=== PATIENT | male | born 1965 | race Caucasian/White ===

== ENCOUNTER 2016-06-15 03:39 | Observation (INO) | payer SELFPAY ==
[~2016-06-15] VITALS: Ht 182.9 cm; Wt 102.0 kg
[2016-06-15] VITALS (15 sets, daily range): BP systolic 106–179; BP diastolic 55–91; PULSE 78–97; RESP 18–20; TEMP 97.6–98.1; O2SAT 92–99
[~2016-06-15 03:39] MED LIST: ATOR80TA PO; CARI1TAB34 PO; DILA4TAB10 PO; DUONI NEB; ENOX100P SQ; HYDR12.56 PO; IPRAAER INH; LISI40TA PO; LOPR50TA12 PO; NITR.4 SL; ORPH100T PO; PLAV75TA PO; POTA-243 PO; REST30CA PO
[2016-06-15] MEDS ORDERED: SODIUM CHLORID 0.9% 500 ML INJ 500 ML IV ONE (04:00)
[2016-06-15] MEDS ORDERED: MORPHINE SULFATE 4 MG/ML INJ IV PUSH ONE (04:00)
[2016-06-15] MEDS ORDERED: SODIUM CHLORIDE 0.9% FLUSH 5 ML FLUSH IVF PRN (04:00)
[2016-06-15] MEDS ORDERED: NITROGLYCERIN 2% OINT 1 GM PACKET TOP ONE (04:00)
[2016-06-15] MEDS ORDERED: ONDANSETRON HCL 4 MG/2 ML VIAL IV PUSH ONE (04:00)
[2016-06-15] MEDS ORDERED: RESP: ALBUTEROL 2.5 MG/IPRATROPIUM 0.5 MG NEB (SCH) INH ONE (04:30)
--- NOTE | 2016-06-15 04:31 | PD ---
HPI Chief Complaint: Chest Pain Time Seen by Provider: 03:55 Travel History International Travel<30 days: No Contact w/Intl Traveler<30days: No Traveled to known affect area: No History of Present Illness HPI 50-year-old male with history of multiple medical issues, prostate cancer and colon cancer with metastases to multiple areas including the brain, previous CVA , ME, PE, on Plavix due to aspirin allergies, on Lovenox due to PE, currently follows up with Dr. Ryan for cardiology, presents to the ER today because he started having a 8 out of 10 substernal chest pains with radiation down his left arm and nausea. He states it feels like his heart attack. He had taken 4 of his nitroglycerin today and it reduced his pain from a 10 out of 10 to a 8 out of 10 currently. He states the pain worsens with exertion. Modifying Factors: None Associated Signs & Symptoms: Chest pain Risk Factors: Previous ME history PFSH Past Medical History Hx Anticoagulant Therapy: Yes ADHD: Yes Arthritis: No Asthma: Yes Autoimmune Disease: No Blood Disorders: No Anxiety: No Depression: No Heart Rhythm Problems: Yes (A-FIB) Cancer: Yes (PROSTATE-COLON METASTASIZED TO BRAIN/LUNGS/L INTESTINE ON CHEMO) Cardiac Catheterization: Yes High Cholesterol: Yes Chemotherapy: Yes (12/30/15--PROSTATE CA) Chest Pain: Yes Congestive Heart Failure: No COPD: No Cerebrovascular Accident: Yes (2006) Diabetes: No Diminished Hearing: No Deep Vein Thrombosis: Yes (3 PE) Endocrine: No Gastrointestinal Disorders: No GERD: Yes Glaucoma: No Genitourinary: No Headaches: Yes Hepatitis: No Hiatal Hernia: Yes Hypertension: Yes Immune Disorder: No Implanted Vascular Access Dvce: No Kidney Stones: Yes Musculoskeletal: Yes (carpal tunnel in both hands) Neurologic: Yes (SCIATIC NERVE REPAIR) Psychiatric: No Reproductive: No Respiratory: Yes (ASTHMA) Immunizations Current: No Myocardial Infarction: Yes (x3) Radiation Therapy: Yes Renal Failure: No Seizures: Yes Sleep Apnea: Yes (cpap) Thyroid Disease: No Ulcer: No PNEUMOCCOCAL Vaccine (Year): 2010 ?: Not Past Surgical History Abdominal Surgery: Yes (HERNIA REPAIR) AICD: No Appendectomy: Yes Arteriovenous Shunt: No Cardiac Surgery: Yes (ANGIOPLASTY X 3) Coronary Artery Bypass Graft: No Coronary Stent: Yes (X1) Ear Surgery: No Endocrine Surgery: No Eye Surgery: No Genitourinary Surgery: No Gynecologic Surgery: No Hysterectomy: Yes Insulin Pump: No Joint Replacement: No Neurologic Surgery: Yes (sciatic nerve) Oral Surgery: Yes (ABSCESS REMOVED FROM TOP OF SOFT PALATE) Pacemaker: No Thoracic Surgery: No Other Surgery: Yes Family History Family Myocardial Infarction: Yes Social History Alcohol Use: No Tobacco Use: Yes (/2 PPD ) Substance Use: No Allergies-Medications (Allergen,Severity, Reaction): Coded Allergies: Aspirin (Verified Allergy, Severe, Anaphylaxis, 01/01/16) Iodine (Verified Allergy, Severe, anaphalactic, 01/01/16) Peanut (Verified Allergy, Severe, Anaphylaxis, 01/01/16) Penicillin (Verified Allergy, Severe, Nausea/Vomiting, 01/01/16) [place] Nut (Verified Allergy, Mild, 01/01/16) Nut Tree (Verified Allergy, Mild, RASH, 01/01/16) [place] Nut (Verified Allergy, Mild, RASH, 01/01/16) Contrast Media (Verified Adverse Reaction, Severe, 01/01/16) NAUSEA/VOMITING, "COUGH UP BLOOD" Reported Meds & Prescriptions Reported Meds & Active Scripts Active Reported Nitroglycerin SL (Nitroglycerin) 0.4 Mg Subl 0.4 Mg SL DIRECTED PRN ONE TABLET UNDER THE TONGUE NEEDED FOR CHEST PAIN, MAY REPEAT EVERY FIVE MINUTES FOR A TOTAL OF 3 DOSES OR CALL 911 IF NO RELIEF Temazepam 30 Mg Cap 30 Mg PO HS PRN Klor-Con 25 (Potassium Chloride) 25 Meq Pow 10 Meq PO DAILY Lopressor (Metoprolol Tartrate) 50 Mg Tab 50 Mg PO BID Lovenox Inj (Enoxaparin Sodium) 100 Mg/Ml Syr 100 Mg SQ BID Soma (Carisoprodol) 350 Mg Tab 350 Mg PO TID PRN Combivent Respimat Inh (Ipratropium-Albuterol Inh) 20-100 Alf/Act Aero 1 Puff INH Q6HR PRN Albuterol Neb (Albuterol Sulfate) 2.5 Mg/0.5 Ml Neb 2.5 Mg NEB QID NEB Note: The Albuterol Sulfate Inhalation Solution is concentrated and must be diluted. Read complete instructions carefully before using. Lipitor (Atorvastatin Calcium) 40 Mg Tab 40 Mg PO HS Hydrochlorothiazide 25 Mg Tab 25 Mg PO DAILY Lisinopril 20 Mg Tab 20 Mg PO DAILY Plavix (Clopidogrel Bisulfate) 75 Mg Tab 75 Mg PO DAILY Review of Systems Except as stated in HPI: all other systems reviewed are Neg Physical Exam Narrative GENERAL: Well-nourished, well-developed middle age white male patient in mild distress. SKIN: Warm and dry. HEAD: Normocephalic. EYES: No scleral icterus. No injection or drainage. NECK: Supple, trachea midline. CARDIOVASCULAR: Regular rate and rhythm without murmurs, gallops, or rubs. RESPIRATORY: Breath sounds equal bilaterally. No accessory muscle use. GASTROINTESTINAL: Abdomen soft, non-tender, nondistended. MUSCULOSKELETAL: No cyanosis, or edema. BACK: Nontender without obvious deformity. No CVA tenderness. Data Data Last Documented VS Vital Signs Date Time Temp Pulse Resp B/P Pulse Ox O2 Delivery O2 Flow Rate FiO2 06/15/16 05:23 89 18 139/91 99 Room Air 06/15/16 03:46 97.6 Orders Electrocardiogram (06/15/16 03:55) B-Type Natriuretic Peptide (06/15/16 03:55) Ckmb (Isoenzyme) Profile (06/15/16 03:55) Complete Blood Count With Diff (06/15/16 03:55) Comprehensive Metabolic Panel (06/15/16 03:55) D-Dimer (06/15/16 03:55) Magnesium (Mg) (06/15/16 03:55) Prothrombin Time / Inr (Pt) (06/15/16 03:55) Act Partial Throm Time (Ptt) (06/15/16 03:55) Troponin I (06/15/16 03:55) Chest, Single Ap (06/15/16 03:55) Ecg Monitoring (06/15/16 03:55) Bilateral Bp Monitoring (06/15/16 03:55) Iv Access Insert/Monitor (06/15/16 03:55) Oximetry (06/15/16 03:55) Oxygen Administration (06/15/16 03:55) Morphine Inj (Morphine Inj) (06/15/16 04:00) Nitroglycerin 2% Oint (Nitroglycerin 2% (06/15/16 04:00) Sodium Chloride 0.9% Flush (Ns Flush) (06/15/16 04:00) Sodium Chlorid 0.9% 500 Ml Inj (Ns 500 M (06/15/16 04:00) Ondansetron Inj (Zofran Inj) (06/15/16 04:00) Albuterol-Ipratropium Neb (Duoneb Neb) (06/15/16 04:30) CKMB (06/15/16 04:24) CKMB% (06/15/16 04:24) Hydromorphone Pf Inj (Dilaudid Pf Inj) (06/15/16 05:45) Labs Laboratory Tests Test 06/15/16 04:24 White Blood Count 7.1 TH/MM3 Red Blood Count 4.75 MIL/MM3 Hemoglobin 13.1 GM/DL Hematocrit 38.7 % Mean Corpuscular Volume 81.5 FL Mean Corpuscular Hemoglobin 27.6 PG Mean Corpuscular Hemoglobin 33.9 % Concent Red Cell Distribution Width 18.3 % Platelet Count 230 TH/MM3 Mean Platelet Volume 8.0 FL Neutrophils (%) (Auto) 58.4 % Lymphocytes (%) (Auto) 26.5 % Monocytes (%) (Auto) 10.4 % Eosinophils (%) (Auto) 4.2 % Basophils (%) (Auto) 0.5 % Neutrophils # (Auto) 4.2 TH/MM3 Lymphocytes # (Auto) 1.9 TH/MM3 Monocytes # (Auto) 0.7 TH/MM3 Eosinophils # (Auto) 0.3 TH/MM3 Basophils # (Auto) 0.0 TH/MM3 CBC Comment DIFF FINAL Differential Comment Prothrombin Time 10.2 SEC Prothromb Time International 0.9 RATIO Ratio Activated Partial 26.1 SEC Thromboplast Time D-Dimer Quantitative (PE/DVT) 0.52 MG/L FEU Sodium Level 140 MEQ/L Potassium Level 4.2 MEQ/L Chloride Level 105 MEQ/L Carbon Dioxide Level 27.5 MEQ/L Anion Gap 8 MEQ/L Blood Urea Nitrogen 15 MG/DL Creatinine 0.98 MG/DL Estimat Glomerular Filtration 82 ML/MIN Rate Random Glucose 97 MG/DL Calcium Level 8.9 MG/DL Magnesium Level 2.0 MG/DL Total Bilirubin 0.2 MG/DL Aspartate Amino Transf 10 U/L (AST/SGOT) Alanine Aminotransferase 23 U/L (ALT/SGPT) Alkaline Phosphatase 86 U/L Total Creatine Kinase 128 U/L Creatine Kinase MB 1.7 NG/ML Troponin I LESS THAN 0.02 NG/ML B-Type Natriuretic Peptide LESS THAN 2 PG/ML Total Protein 7.1 GM/DL Albumin 3.5 GM/DL MDM Medical Decision Making Medical Screen Exam Complete: Yes Emergency Medical Condition: Yes Medical Record Reviewed: Yes Interpretation(s) EKG shows normal sinus rhythm at a rate of 94 bpm with no signs of acute ST-T changes. Laboratory Tests Test 06/15/16 04:24 Hematocrit 38.7 % (39.0-51.0) Red Cell Distribution Width 18.3 % (11.6-17.2) Monocytes (%) (Auto) 10.4 % (0.0-8.0) Eosinophils (%) (Auto) 4.2 % (0.0-4.0) D-Dimer Quantitative (PE/DVT) 0.52 MG/L FEU (0.00-0.50) Estimat Glomerular Filtration 82 ML/MIN (>89) Rate Aspartate Amino Transf 10 U/L (15-37) (AST/SGOT) Troponin I LESS THAN 0.02 NG/ML (0.02-0.05) Differential Diagnosis Chest painsACS versus PE versus pneumonia versus unstable angina versus dysrhythmias Narrative Course Patient was given aspirin and nitroglycerin in the ER. EKG did not show any signs of acute ST-T changes. Cardiac enzymes are negative. At this point, my plan would be to medically admit the patient for further evaluation and treatment. Cardiology consult. Case is discussed with Dr. Sethi for admission. Procedures EKG Prior to Arrival: Yes Diagnosis Primary Impression: Chest pain Admitting Information Admitting Physician Requests: Admit Jack Cruz MD Jun 15, 2016 04:31 Jack Cruz MD Jun 15, 2016 04:31
[2016-06-15 04:34] LABS: AUTOMATED NEUTROPHIL # 4.2 TH/MM3 (1.8-7.7); BASOPHIL % 0.5 % (0.0-2.0); EOSINOPHIL # 0.3 TH/MM3 (0-0.4); EOSINOPHIL % 4.2 % (0.0-4.0); HEMATOCRIT 38.7 % (39.0-51.0); HEMO FLAGS DIFF FINAL; LYMPH % 26.5 % (9.0-44.0); LYMPHOCYTE # 1.9 TH/MM3 (1.0-4.8); MEAN CELL VOLUME 81.5 FL (80.0-100.0); MEAN CORPUSCULAR HEMOGLOBIN 27.6 PG (27.0-34.0); MEAN CORPUSCULAR HGB CONC 33.9 % (32.0-36.0); MONO % 10.4 % (0.0-8.0); NEUT % 58.4 % (16.0-70.0); PLATELET COUNT 230 TH/MM3 (150-450); RED BLOOD COUNT 4.75 MIL/MM3 (4.50-5.90); RED CELL DISTRIBUTION WIDTH 18.3 % (11.6-17.2); WHITE BLOOD COUNT 7.1 TH/MM3 (4.0-11.0)
[2016-06-15 04:47] LABS: ALT (GPT) 23 U/L (12-78); ANION GAP 8 MEQ/L (5-15); AST (GOT) 10 U/L (15-37); BICARBONATE 27.5 MEQ/L (21.0-32.0); BLOOD UREA NITROGEN 15 MG/DL (7-18); CHLORIDE 105 MEQ/L (98-107); GLOMERULAR FILTRATION RATE 82 ML/MIN (>89); POTASSIUM 4.2 MEQ/L (3.5-5.1); SODIUM (NA) 140 MEQ/L (136-145)
--- NOTE | 2016-06-15 04:49 | RADRPT ---
EXAM DATE/TIME: 06/15/2016 04:07 [facility] COMPARISON: CHEST SINGLE AP, January 03, 2016, 20:53. INDICATIONS : Chest pain. MEDICAL HISTORY : Hypertension. Myocardial infarction. Atrial fibrillation, coronary artery disease and prostate cancer . SURGICAL HISTORY : Appendectomy. Coronary artery stent. Hernia repair. ENCOUNTER: Initial ACUITY: 1 day PAIN SCORE: 4/10 LOCATION: Bilateral chest FINDINGS: A single view of the chest demonstrates the lungs to be symmetrically aerated without evidence of mas s, infiltrate or effusion. The cardiomediastinal contours are unremarkable. Osseous structures are intact with some degenerative spurring of the dorsal spine. CONCLUSION: No acute cardiopulmonary process. Dexter Powell MD on June 15, 2016 at 4:45 Board Certified Radiologist. This report was verified electronically.
[2016-06-15 04:50] LABS: ALKALINE PHOSPHATASE 86 U/L (45-117); CREATINE KINASE 128 U/L (39-308); TOTAL BILIRUBIN ADULT 0.2 MG/DL (0.2-1.0)
[2016-06-15 04:57] LABS: APTT (PATIENT) 26.1 SEC (24.3-30.1); INTERNATIONAL NORMALIZED RATIO 0.9 RATIO; PROTHROMBIN TIME - PATIENT 10.2 SEC (9.8-11.6)
[2016-06-15 05:02] LABS: CKMB 1.7 NG/ML (0.5-3.6)
[2016-06-15] MEDS ORDERED: TEMA30CA PO (05:30)
[2016-06-15] MEDS ORDERED: LISI-515 PO (05:30)
[2016-06-15] MEDS ORDERED: HYDR25TA5 PO (05:30)
[2016-06-15] MEDS ORDERED: KLOR25PO2 PO (05:30)
[2016-06-15] MEDS ORDERED: IPRAAER INH (05:30)
[2016-06-15] MEDS ORDERED: LIPI40TA PO (05:30)
[2016-06-15] MEDS ORDERED: NITR50VP (05:30)
[2016-06-15] MEDS ORDERED: ENOX100P SQ (05:30)
[2016-06-15] MEDS ORDERED: NITR1SUB3 SL (05:30)
[2016-06-15] MEDS ORDERED: ALBU.5I NEB (05:30)
[2016-06-15] MEDS ORDERED: PLAV75TA29 PO (05:30)
[2016-06-15] MEDS ORDERED: METO-309 PO (05:30)
[2016-06-15] MEDS ORDERED: SOMA350T PO (05:30)
[2016-06-15] MEDS ORDERED: HYDROmorphone HCL PF 2 MG/ML VIAL IV PUSH ONE (05:45)
[2016-06-15] MEDS ORDERED: TIOTROPIUM BROMIDE 18 MCG INH INH PRN (08:00)
[2016-06-15] MEDS ORDERED: ACETAMINOPHEN 500 MG CPLT PO PRN (08:00)
[2016-06-15] MEDS: RESP: ALBUTEROL CONC 2.5 MG/0.5 ML NEB NEB SCH ×4 (08:00→20:00)
[2016-06-15] MEDS ORDERED: SODIUM CHLORIDE 0.9% FLUSH 5 ML FLUSH IV PRN (08:00)
[2016-06-15] MEDS ORDERED: NITROGLYCERIN 0.4 MG SL 25 TABS/BTL SL PRN (08:00)
[2016-06-15 08:12] LABS: AMPHETAMINE, URINE NEG (NEG); BARBITURATES, URINE NEG (NEG); COCAINE, URINE NEG (NEG)
[2016-06-15] MEDS: SODIUM CHLORIDE 0.9% FLUSH 5 ML FLUSH IV SCH ×2 (09:00→21:00)
[2016-06-15] MEDS: ENOXAPARIN SODIUM 100 MG/ML SYRINGE SQ SCH ×2 (09:00→21:00)
[2016-06-15] MEDS: ALBUTEROL SULFATE 90 MCG/ACT HFA 8 GM INHALER INH SCH ×4 (09:00→21:00)
--- NOTE | 2016-06-15 10:10 | EKG ---
Date Performed: 06/15/2016 Time Performed: 03:48:57 PTAGE: 50 years EKG: Sinus rhythm NORMAL ECG NO PREVIOUS TRACING DOCTOR: Be Boyer Interpretating Date/Time 06/15/2016 10:07:35
[2016-06-15] MEDS: HYDROCHLOROTHIAZIDE 25 MG TAB PO SCH (10:25)
[2016-06-15] MEDS: PANTOPRAZOLE SOD 40 MG DELAYED RELEASE TAB PO SCH (10:25)
[2016-06-15] MEDS: METOPROLOL TARTRATE 50 MG TAB PO SCH ×2 (10:26→21:00)
[2016-06-15] MEDS: LISINOPRIL 20 MG TAB PO SCH (10:26)
[2016-06-15] MEDS: CLOPIDOGREL 75 MG TAB PO SCH (10:26)
--- NOTE | 2016-06-15 12:03 | MB ---
cc: GONZALO WOLFE DATE OF CONSULTATION: 06/15/2016 DATE OF : 1965 REASON FOR CONSULTATION Chest pain. HISTORY OF PRESENT ILLNESS 50-year-old male with a past medical history significant for prostate and colon cancer stage IV with liver metastasis, brain metastasis, kidney and pancreas on chemo and radiation, pulmonary emboli, tobacco abuse, coronary artery disease with a stent in 2008 that presented to the hospital with complaints of acute onset of chest pressure. He reports that the chest pain and pressure woke him up from sleep and was found to be relieved by nitroglycerin. He reports the chest pain radiated to the left arm and was associated with some diaphoresis. In the emergency department the EKG showed normal sinus rhythm with a rate of 94 , no acute ST changes. Cardiac markers have been negative x1. He was given aspirin and nitroglycerin and he was admitted for further evaluation. Cardiology has been consulted because of chest pain and history of CAD. Of note , the patient has been here seven times in the past with the same symptoms. He had an unremarkable myocardial perfusion study on 01/22/2016 done at this institution. He also has several other MPI studies in 2015 and further. He denies palpitations, syncope, bleeding, noncompliance with medications, fevers, chills, nausea, vomiting, diarrhea. He reports having occasional rectal bleeding. REVIEW OF SYSTEMS The review of systems is otherwise negative except for what is mentioned in the HPI. ALLERGIES 1. IODINE. 2. ASPIRIN. PAST MEDICAL HISTORY 1. Colon cancer. 2. Prostate cancer. 3. Asthma. 4. Obesity. 5. CAD, status post stent in the past. 6. Tobacco abuse. FAMILY HISTORY Noncontributory. SOCIAL HISTORY He is a smoker. Denies alcohol or illicit drug use. PAST CARDIAC TESTING According to the [facility] record he has had six chemical stress tests that were essentially normal with intact wall motion and ejection fractions. His tests range from 2006, 2010, 2012, 2014 and 2016. He denies any prior recent cardiac catheterizations. MEDICATIONS Cardiac home medications: 1. Lipitor 40 mg p.o. daily. 2. Plavix 75 mg p.o. daily. 3. Hydrochlorothiazide 25 mg p.o. daily. 4. Lisinopril 20 mg p.o. daily. 5. Lopressor 50 mg p.o. b.i.d. 6. Nitroglycerin sublingual p.r.n. for chest pain. 7. Potassium chloride 25 mEq p.o. daily. PHYSICAL EXAMINATION VITAL SIGNS: Temperature 97.6, pulse 82, respiratory rate 20, blood pressure 128/76, O2 sat 95% on room air. GENERAL: He is awake, alert and oriented, in no acute distress. NECK: No JVD. No carotid bruits. HEART: Regular rate and rhythm. No murmurs, rubs or gallops appreciated. LUNGS: Clear to auscultation bilaterally. No wheezes, rhonchi or rales. ABDOMEN: Soft, nontender, nondistended. He has a ventral hernia. EXTREMITIES: No cyanosis or edema. Pulses throughout. DATA CBC: Hemoglobin 13, hematocrit 38, platelet count 230. INR 0.9. Electrolytes: Sodium 140, potassium 4.2. BUN 15, creatinine 0.98. Troponin 0.02. BNP less than 2. Chest x-ray: No acute cardiopulmonary process. EKG: Normal sinus rhythm, no acute ST changes. ASSESSMENT AND PLAN 50-year-old male with above history and findings who presented with acute onset of chest pain similar to the previous episodes. Currently he remains chest pain free. He is hemodynamically stable. Cardiac enzymes and BNP are unremarkable. The patient does have colon and prostate cancer with metastasis, stage IV. He is receiving chemo and radiation/Gamma Knife. Given the patient is allergic to aspirin, iodine and has episodic rectal bleeding he is not a candidate for invasive risk management for CAD at this time I would recommend to treat his chest pain conservatively at this point. Optimize medications for secondary prevention of coronary artery disease with beta-blockers, long-acting nitrates, statins, VANIA inhibitors and clopidogrel. Consider CTA of the chest to rule out pulmonary emboli. Repeat the myocardial perfusion study. If the myocardial perfusion study is unremarkable the patient should be able to be discharged home and follow-up with his early childhood teacher on an outpatient basis. Thank you for the opportunity to take part in the care of this patient. Will be available on a p.r.n. basis for any further questions or concerns. Gonzalo Wolfe MD DERRICK MAN/BT /11:17 AM /11:41 AM TAMMI
--- NOTE | 2016-06-15 12:31 | HHI.HP ---
History of Present Illness Service Attending Primary Care Physician Cesar Gar, DO Admission Diagnosis chest pain Diagnoses: (1) Chest pain Diagnosis: Principal (2) DM (diabetes mellitus) Diagnosis: Secondary (3) Hypertension Diagnosis: Secondary (4) Hyperlipidemia (5) COPD (chronic obstructive pulmonary disease) Diagnosis: Secondary (6) Tobacco abuse Diagnosis: Secondary History of Present Illness This is a 50 year old male patient of Dr. Gar who is a frequent visitor at emergency departments. He frequents [facility], [facility] and [facility] and has had multiple myocardial perfusion scans and heart catheterizations, the last of which was done 12/27/[address] [facility] after which he had an anaphylactic reaction in spite of being pre-medicated with 2 doses of solu-cortef, pepcid and benadryl.. This study was negative for occlusive CAD. Left ventriculogram was normal in size and showed no motion abnormalities. He describes the chest pain as central , 7/0, radiating to the left arm without SOB, nausea or diaphoresis. He has a history of cocaine abuse with positive UDS seen in the past, and a cocaine induced RI in 2003, however UDS done today was negative for illicit drug use. He has a known stent in the proximal LAD, described by Dr. Varela as widely patent in her 2015 catheterization, with otherwise insignificant CAD. He claims to be followed by [facility] in [place], [place] for 2 brain tumors, for which he states he is prescribed Dilaudid 4 mg q4H. This is not seen on his home medication list and no records are available. He is admitted to r/o ACS. Thus far, his serial troponins and EKG's have been normal. Review of Systems Cardiovascular: COMPLAINS OF: Chest pain Past Family Social History Allergies: Coded Allergies: Aspirin (Verified Allergy, Severe, Anaphylaxis, 01/01/16) Iodine (Verified Allergy, Severe, anaphalactic, 01/01/16) Peanut (Verified Allergy, Severe, Anaphylaxis, 01/01/16) Penicillin (Verified Allergy, Severe, Nausea/Vomiting, 01/01/16) [place] Nut (Verified Allergy, Mild, 01/01/16) Nut Tree (Verified Allergy, Mild, RASH, 01/01/16) [place] Nut (Verified Allergy, Mild, RASH, 01/01/16) Contrast Media (Verified Adverse Reaction, Severe, 01/01/16) NAUSEA/VOMITING, "COUGH UP BLOOD" Past Medical History PAST MEDICAL HISTORY 1. Hypertension. 2. Hyperlipidemia. 3. Myocardial infarction x3 in 1996 and 2001 and 2014 4. Cerebrovascular accident x3 in 1994, 1998 and 2000 with mild left residual weakness. 5. Obesity. 6. Asthma. 7. Seizure disorder. 8. Angina. 9. He claims to have metastatic colon cancer that had metastasized to the brain, followed by Dr. Cho. This is not seen in the hospital records 10. Anxiety. 11. Chronic pain syndrome. 12. Pneumonia. 13. Hemorrhoids. 14. Migraines. 15. 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 Past Surgical History SURGICAL HISTORY 1. Multiple heart catheterizations, last of which was in 2015, during which he had an anaphylactic reaction.. 2. Appendectomy. 3. Colon resection and brain biopsy. 4. Sciatic block.. Reported Medications Reported Meds & Active Scripts Active Reported Nitroglycerin SL (Nitroglycerin) 0.4 Mg Subl 0.4 Mg SL DIRECTED PRN ONE TABLET UNDER THE TONGUE NEEDED FOR CHEST PAIN, MAY REPEAT EVERY FIVE MINUTES FOR A TOTAL OF 3 DOSES OR CALL 911 IF NO RELIEF Temazepam 30 Mg Cap 30 Mg PO HS PRN Klor-Con 25 (Potassium Chloride) 25 Meq Pow 10 Meq PO DAILY Lopressor (Metoprolol Tartrate) 50 Mg Tab 50 Mg PO BID Lovenox Inj (Enoxaparin Sodium) 100 Mg/Ml Syr 100 Mg SQ BID Soma (Carisoprodol) 350 Mg Tab 350 Mg PO TID PRN Combivent Respimat Inh (Ipratropium-Albuterol Inh) 20-100 Fci/Act Aero 1 Puff INH Q6HR PRN Albuterol Neb (Albuterol Sulfate) 2.5 Mg/0.5 Ml Neb 2.5 Mg NEB QID NEB Note: The Albuterol Sulfate Inhalation Solution is concentrated and must be diluted. Read complete instructions carefully before using. Lipitor (Atorvastatin Calcium) 40 Mg Tab 40 Mg PO HS Hydrochlorothiazide 25 Mg Tab 25 Mg PO DAILY Lisinopril 20 Mg Tab 20 Mg PO DAILY Plavix (Clopidogrel Bisulfate) 75 Mg Tab 75 Mg PO DAILY Active Ordered Medications Current Medications Medications (Trade) Dose Ordered Sig/Sabrina Route Start Time Stop Time Status Last Admin (Lipitor) 40 mg HS PO 3/7/17 21:00 (Plavix) 75 mg DAILY PO 06/15/16 09:00 06/15/16 10:26 (Hydrodiuril) 25 mg DAILY PO 06/15/16 09:00 06/15/16 10:25 (Prinivil) 20 mg DAILY PO 06/15/16 09:00 06/15/16 10:26 (Lopressor) 50 mg BID PO 06/15/16 09:00 06/15/16 10:26 (Nitrostat Sl) 0.4 mg STAT PRN SL 06/15/16 08:00 (Spiriva Inh) 1 mcg Q6HR PRN INH 06/15/16 08:00 (NS Flush) 2 ml BID IV 06/15/16 09:00 06/15/16 09:00 (NS Flush) 2 ml UNSCH PRN IV 06/15/16 08:00 (Tylenol) 500 mg Q4H PRN PO 06/15/16 08:00 06/15/16 10:26 (Protonix) 40 mg DAILY PO 06/15/16 09:00 06/15/16 10:25 (Lovenox Inj) 100 mg Q12H SQ 06/15/16 09:00 (Proair Hfa Inh) 2 puff QID INH 06/15/16 09:00 Family History FAMILY HEALTH HISTORY Mother suffered her 1st myocardial infarction at age 38. Father suffered his 1st myocardial infarction at age 29.. Social History Social History: Smoked 2 to 5 packs per day for 31 years, claims to have quit a few years ago, frequent UDS positive for cocaine, cannabinoids and benzodiazepines on prior urine toxicologies. Alcohol - Past history of heavy use. Caffeine occasionally useOccupation. Physical Exam Vital Signs Vital Signs Date Time Temp Pulse Resp B/P Pulse Ox O2 Delivery O2 Flow Rate FiO2 06/15/16 11:23 97.8 78 18 116/59 94 06/15/16 10:19 82 20 128/76 95 06/15/16 07:28 18 06/15/16 07:27 90 18 106/56 92 Room Air 06/15/16 05:50 16 06/15/16 05:23 89 18 139/91 99 Room Air 06/15/16 04:33 99 Room Air 06/15/16 04:33 100 Room Air 06/15/16 03:49 95 06/15/16 03:46 97.6 96 18 135/83 99 06/15/16 03:41 98.0 97 20 179/88 97 Room Air Physical Exam GENERAL: Well-nourished, well-developed patient. SKIN: Warm and dry. HEAD: Normocephalic. EYES: No scleral icterus. No injection or drainage. NECK: Supple, trachea midline. No JVD or lymphadenopathy. CARDIOVASCULAR: Regular rate and rhythm without murmurs, gallops, or rubs. RESPIRATORY: Breath sounds equal bilaterally. No accessory muscle use. GASTROINTESTINAL: Abdomen soft, non-tender, nondistended. EXTREMITIES: No cyanosis, or edema. NEUROLOGICAL: Awake, alert, and oriented x 3. Non-focal. Laboratory Laboratory Tests Test 06/15/16 06/15/16 04:24 07:45 White Blood Count 7.1 Red Blood Count 4.75 Hemoglobin 13.1 Hematocrit 38.7 Mean Corpuscular Volume 81.5 Mean Corpuscular Hemoglobin 27.6 Mean Corpuscular Hemoglobin 33.9 Concent Red Cell Distribution Width 18.3 Platelet Count 230 Mean Platelet Volume 8.0 Neutrophils (%) (Auto) 58.4 Lymphocytes (%) (Auto) 26.5 Monocytes (%) (Auto) 10.4 Eosinophils (%) (Auto) 4.2 Basophils (%) (Auto) 0.5 Neutrophils # (Auto) 4.2 Lymphocytes # (Auto) 1.9 Monocytes # (Auto) 0.7 Eosinophils # (Auto) 0.3 Basophils # (Auto) 0.0 CBC Comment DIFF FINAL Differential Comment Prothrombin Time 10.2 Prothromb Time International 0.9 Ratio Activated Partial 26.1 Thromboplast Time D-Dimer Quantitative (PE/DVT) 0.52 Sodium Level 140 Potassium Level 4.2 Chloride Level 105 Carbon Dioxide Level 27.5 Anion Gap 8 Blood Urea Nitrogen 15 Creatinine 0.98 Estimat Glomerular Filtration 82 Rate Random Glucose 97 Calcium Level 8.9 Magnesium Level 2.0 Total Bilirubin 0.2 Aspartate Amino Transf 10 (AST/SGOT) Alanine Aminotransferase 23 (ALT/SGPT) Alkaline Phosphatase 86 Total Creatine Kinase 128 Creatine Kinase MB 1.7 Troponin I LESS THAN 0.02 B-Type Natriuretic Peptide LESS THAN 2 Total Protein 7.1 Albumin 3.5 Urine Opiates Screen POS Urine Barbiturates Screen NEG Urine Amphetamines Screen NEG Urine Benzodiazepines Screen NEG Urine Cocaine Screen NEG Urine Cannabinoids Screen NEG Result Diagram: 06/15/16 0424 06/15/16 0424 Imaging Last Impressions Chest X-Ray 06/15/16 0355 Signed Impressions: Service Date/Time: Wednesday, June 15, 2016 04:07 - CONCLUSION: No acute cardiopulmonary process. Dexter Powell MD Assessment and Plan Problem List: (1) Chest pain Status: Acute Plan: Serial troponin's have been negative, no EKG changes seen, no improvement with ntg, negative heart cath 6 months ago. Cardiology consulted. (2) DM (diabetes mellitus) Status: Chronic Plan: Accuchecks, SSI, controlled carb diet, when cleared by cardiology to eat. (3) Hyperlipidemia Status: Chronic Plan: Resume statin, healthy diet. (4) Hypertension Status: Chronic Plan: Controlled on home medications. Assessment and Plan Pending cardiology opinion. Assessment and plan d/w pt., RN, Dr. Gar. Problem Qualifiers (1) Chest pain: Qualified Code: R07.9 - Chest pain, unspecified type (2) DM (diabetes mellitus): (3) Hypertension: Qualified Code: I10 - Essential hypertension (4) Hyperlipidemia: Qualified Code: E78.2 - Mixed hyperlipidemia (5) COPD (chronic obstructive pulmonary disease): Qualified Code: J44.9 - Chronic obstructive pulmonary disease, unspecified COPD type Mercedes Francis Jun 15, 2016 12:31
[2016-06-15] MEDS ORDERED: DEXTROSE 50% IN WATER 50 ML VIAL(D50) IV PUSH PRN (12:45)
[2016-06-15] MEDS ORDERED: GLUCAGON 1 MG/ML VIAL OTHER PRN (12:45)
[2016-06-15] MEDS ORDERED: RESP: ALBUTEROL 2.5 MG/3 ML NEB (PRN) ONE (15:37)
[2016-06-15] MEDS ORDERED: ATORVASTATIN 40 MG TAB PO SCH (21:00)
[2016-06-16] VITALS (7 sets, daily range): BP systolic 117–130; BP diastolic 58–70; PULSE 62–90; RESP 16–21; TEMP 97.8–98; O2SAT 94–98
[2016-06-16 05:34] LABS: AUTOMATED NEUTROPHIL # 5.4 TH/MM3 (1.8-7.7); BASOPHIL % 0.6 % (0.0-2.0); EOSINOPHIL # 0.3 TH/MM3 (0-0.4); EOSINOPHIL % 3.7 % (0.0-4.0); HEMATOCRIT 38.5 % (39.0-51.0); HEMO FLAGS DIFF FINAL; LYMPH % 21.3 % (9.0-44.0); LYMPHOCYTE # 1.7 TH/MM3 (1.0-4.8); MEAN CELL VOLUME 82.3 FL (80.0-100.0); MONO % 7.9 % (0.0-8.0); NEUT % 66.5 % (16.0-70.0); PLATELET COUNT 231 TH/MM3 (150-450); RED BLOOD COUNT 4.67 MIL/MM3 (4.50-5.90); WHITE BLOOD COUNT 8.2 TH/MM3 (4.0-11.0)
[2016-06-16 05:46] LABS: BICARBONATE 28.5 MEQ/L (21.0-32.0); POTASSIUM 4.2 MEQ/L (3.5-5.1)
[2016-06-16] MEDS: RESP: ALBUTEROL 2.5 MG/3 ML NEB (SCH) NEB ×2 (08:08→10:54)
[2016-06-16] MEDS: METOPROLOL TARTRATE 50 MG TAB PO SCH (09:00)
[2016-06-16] MEDS: HYDROCHLOROTHIAZIDE 25 MG TAB PO SCH (10:19)
[2016-06-16] MEDS: ALBUTEROL SULFATE 90 MCG/ACT HFA 8 GM INHALER INH SCH ×2 (10:20→13:19)
[2016-06-16] MEDS: LISINOPRIL 20 MG TAB PO SCH (10:20)
[2016-06-16] MEDS: PANTOPRAZOLE SOD 40 MG DELAYED RELEASE TAB PO SCH (10:20)
[2016-06-16] MEDS: CLOPIDOGREL 75 MG TAB PO SCH (10:20)
[2016-06-16] MEDS: SODIUM CHLORIDE 0.9% FLUSH 5 ML FLUSH IV SCH (10:21)
--- NOTE | 2016-06-16 13:59 | HHI.DS ---
Discharge Summary Admission Date Jun 15, 2016 at 05:46 Admitting Diagnosis chest pain Brief History This is a 50 year old male patient of Dr. Gar who is a frequent visitor at emergency departments. He frequents [facility] and [facility] and has had multiple myocardial perfusion scans and heart catheterizations, the last of which was done 12/27/15 at [facility] after which he had an anaphylactic reaction in spite of being pre-medicated with 2 doses of solu-cortef, pepcid and benadryl.. This study was negative for occlusive CAD. Left ventriculogram was normal in size and showed no motion abnormalities. He describes the chest pain as central , 7/0, radiating to the left arm without SOB, nausea or diaphoresis. He has a history of cocaine abuse with positive UDS seen in the past, and a cocaine induced UT in 2003, however UDS done today was negative for illicit drug use. He has a known stent in the proximal LAD, described by Dr. Varela as widely patent in her 2015 catheterization, with otherwise insignificant CAD. He claims to be followed by [facility] in [place], [place] for 2 brain tumors, for which he states he is prescribed Dilaudid 4 mg q4H. This is not seen on his home medication list and no records are available. He is admitted to r/o ACS. Thus far, his serial troponins and EKG's have been normal. CBC/BMP: 06/16/16 0431 06/16/16 0431 Significant Findings Laboratory Tests Test 06/15/16 06/15/16 06/16/16 04:24 07:45 04:31 Hematocrit 38.7 % 38.5 % (39.0-51.0) (39.0-51.0) Red Cell Distribution Width 18.3 % 18.0 % (11.6-17.2) (11.6-17.2) Monocytes (%) (Auto) 10.4 % (0.0-8.0) Eosinophils (%) (Auto) 4.2 % (0.0-4.0) D-Dimer Quantitative (PE/DVT) 0.52 MG/L FEU (0.00-0.50) Estimat Glomerular Filtration 82 ML/MIN (>89) 83 ML/MIN (>89) Rate Aspartate Amino Transf 10 U/L (15-37) (AST/SGOT) Troponin I LESS THAN 0.02 NG/ML (0.02-0.05) Urine Opiates Screen POS (NEG) Imaging Last Impressions Chest X-Ray 06/15/16 0355 Signed Impressions: Service Date/Time: Wednesday, June 15, 2016 04:07 - CONCLUSION: No acute cardiopulmonary process. Dexter Powell MD PE at Discharge GENERAL: Well-nourished, well-developed patient. SKIN: Warm and dry. HEAD: Normocephalic. EYES: No scleral icterus. No injection or drainage. NECK: Supple, trachea midline. No JVD or lymphadenopathy. CARDIOVASCULAR: Regular rate and rhythm without murmurs, gallops, or rubs. RESPIRATORY: Breath sounds equal bilaterally. No accessory muscle use. GASTROINTESTINAL: Abdomen soft, non-tender, nondistended. EXTREMITIES: No cyanosis, or edema. NEUROLOGICAL: Awake, alert, and oriented x 3. Non-focal. Hospital Course Cardiology consultation was obtained, troponin and EKG's remained stable. Myocardial perfusion study was declined by patient, as was an ETT. He had recently had a catheterization in 12/2015 which was negative for coronary disease and had an anaphylactic reaction to the contrast, in spite of premedication with solu-cortef, pepcid and benadryl. He later stated that he was under the care of Dr. Massimo Stark at the [facility] in [place], [place], for metastatic colon and prostate cancer, with brain lesions. No records could be found to substantiate this. Oncology consult was ordered for further evaluation and the patient demanded to be discharged immediately or would sign out AMA. He also requested a script for Percocet 10 mg upon discharge, which was not given. He was discharged home with outpatient f /u with Dr. Gar, Dr. Ledesma and Dr. Stark in stable condition. Pt Condition on Discharge: Stable Discharge Disposition: Discharge Home Discharge Instructions DIET: Follow Instructions for: Heart Healthy Diet Activities you can perform: Regular-No Restrictions Continued Medications: Albuterol Neb (Albuterol Neb) 2.5 Mg/0.5 Ml Neb 2.5 MG NEB QID NEB Note: The Albuterol Sulfate Inhalation Solution is concentrated and must be diluted. Read complete instructions carefully before using. Breathing Treatment #120 Ref 0 NEBULE Atorvastatin (Lipitor) 40 Mg Tab 40 MG PO HS Cholesterol Management #30 Ref 0 TAB Carisoprodol (Soma) 350 Mg Tab 350 MG PO TID PRN PAIN Ref 0 TAB Clopidogrel (Plavix) 75 Mg Tab 75 MG PO DAILY Blood Clot Prevention #30 Ref 0 TAB Hydrochlorothiazide (Hydrochlorothiazide) 25 Mg Tab 25 MG PO DAILY #30 Ref 0 TAB Ipratropium-Albuterol Inh (Combivent Respimat Inh) 20-100 Detention/Act Aero 1 PUFF INH Q6HR PRN SHORTNESS OF BREATH #1 Ref 0 INHALER Lisinopril (Lisinopril) 20 Mg Tab 20 MG PO DAILY #30 Ref 0 TAB Metoprolol Tartrate (Lopressor) 50 Mg Tab 50 MG PO BID #60 Ref 0 TAB Nitroglycerin SL (Nitroglycerin SL) 0.4 Mg Subl 0.4 MG SL DIRECTED ONE TABLET UNDER THE TONGUE NEEDED FOR CHEST PAIN, MAY REPEAT EVERY FIVE MINUTES FOR A TOTAL OF 3 DOSES OR CALL 911 IF NO RELIEF PRN CHEST PAIN #100 Ref 0 TAB.SL Potassium Chloride (Klor-Con 25) 25 Meq Pow 10 MEQ PO DAILY Temazepam (Temazepam) 30 Mg Cap 30 MG PO HS PRN INSOMNIA #30 Ref 0 CAP Discontinued Medications: Enoxaparin Inj (Lovenox Inj) 100 Mg/Ml Syr 100 MG SQ BID Blood Clot Prevention Ref 0 SYRINGE Mercedes Francis Jun 16, 2016 13:59
== END 2016-06-16 15:12 | disposition home or self-care (01) ==
LOC: NEPC 03:39 → NEDA 05:46 → NEPFCDU 11:02
PROVIDERS: ADMIT Family Medicine; ATTEND Family Medicine
DX: R07.89 Other chest pain (principal); E11.9 Type 2 diabetes mellitus without complications; I10 Essential (primary) hypertension; J44.9 Chronic obstructive pulmonary disease, unspecified; E78.5 Hyperlipidemia, unspecified; F17.200 Nicotine dependence, unspecified, uncomplicated; I25.2 Old myocardial infarction; E66.9 Obesity, unspecified; J45.909 Unspecified asthma, uncomplicated; G40.909 Epilepsy, unspecified, not intractable, without status epilepticus; C79.31 Secondary malignant neoplasm of brain; C78.7 Secondary malignant neoplasm of liver and intrahepatic bile duct; F41.9 Anxiety disorder, unspecified; Z87.01 Personal history of pneumonia (recurrent); G89.4 Chronic pain syndrome; C61 Malignant neoplasm of prostate; Z91.041 Radiographic dye allergy status; Z85.038 Personal history of other malignant neoplasm of large intestine; Z95.5 Presence of coronary angioplasty implant and graft; Z91.010 Allergy to peanuts; Z88.0 Allergy status to penicillin; Z91.018 Allergy to other foods; Z91.048 Other nonmedicinal substance allergy status; Z79.51 Long term (current) use of inhaled steroids; Z86.711 Personal history of pulmonary embolism; Z79.01 Long term (current) use of anticoagulants; Z79.02 Long term (current) use of antithrombotics/antiplatelets; I25.10 Atherosclerotic heart disease of native coronary artery without angina pectoris; Z86.73 Personal history of transient ischemic attack (TIA), and cerebral infarction without residual deficits
CPT/HCPCS: 71010; 76937; 80048; 80053; 80307; 82550; 82552; 82948; 83735; 83880; 84484; 85025; 85379; 85610; 85730; 93005; 94640; 94664; 96361; 96374; 96375; 99285; G0378; J1170; J1650; J2270; J2405; J7040; J7611; J7613